=== PATIENT | female | born 1975 | race Caucasian/White ===

== ENCOUNTER 2019-02-10 10:20 | Emergency (ER) | payer MEDICAID, SELFPAY ==
[2019-02-10 10:30] VITALS: BP 120/60; PULSE 92; RESP 16; TEMP 37; O2SAT 100
--- NOTE | 2019-02-10 10:31 | W.ED.GENAD ---
Discharge Plan Disposition Patient Disposition: HOME Condition: Stable Discharge Details Chief Complaint: Orthopedic Clinical Impression: Left knee sprain Primary Care Provider: Daniella Espinoza ED Provider: Abelardo Billings Home Meds and New Rx's Prescriptions: No Action No Known Home Meds RF: 0 Discharge Instructions Instructions: Knee Sprain (ED) Additional Instructions: Follow up with orthopedics especially if pain is not improved in a week you can take 1000mg tylenol and 600mg ibuprofen every 6 hours for pain as needed Referrals: Ignacio Messina MD [ [facility] STAFF PHYSICIAN] - Medical Decision Making 43 yo female comes in with left knee pain. States last night had her animals (goats) and one of the ropes got wrapped around her right leg and she got pulled to the ground, denies head trauma or loc. During the fall she states her left knee twisted and felt a pop. Has medial left knee pain with swelling of the knee. Does have full rom of the knee with intact ditsal sensastion, no redness or warmth. Suspect strain vs sprain, also could be meniscus injury or ligament injury. Will xray to eval for fx xray negative on my read for fx. Given knee brace and crutches to use prn and will have her f/u with orthopedics Differential Diagnosis sprain, strain, contusion, fx Imaging Data Radiologic Study: Attestation: I personally reviewed and interpreted this imaging study as follows: Imaging: X-Ray My impression: no acute findings HPI General Mode of arrival: ambulatory. Date/Time Provider Initiated Documentation: 02/10/19 10:31. Limitations to Documentation: no limitations. Information obtained by: patient. History of Present Illness 43 year old F presents to the emergency department with the chief complaint of left knee pain, described as moderate, Quality is described as aching, and is localized to the left and lower extremity. Patient started experiencing this day(s) (1) and it has been constant. Rest improves symptom(s), Movement worsens symptoms . Patient notes no other symptoms.. Patient did receive the following treatments prior to arrival, none Related Data Home Medications Medication Instructions Recorded Confirmed Unknown [No Known Home Meds] 02/10/19 02/10/19 Allergies Allergy/AdvReac Type Severity Reaction Status Date / Time No Known Allergies Allergy Unverified 02/10/19 10:35 Review of Systems Review of Systems All systems reviewed & are unremarkable except as noted in HPI and below Constitutional Denies chills, Denies fever(s) and Denies weakness Cardiovascular Denies chest pain and Denies dyspnea Respiratory Denies dyspnea Gastrointestinal Denies vomiting Neurologic Denies weakness [facility] Social History Smoking/Tobacco Use Status: Never Alcohol Intake: never Drug use: Never Substance use type: does not use Do you feel safe at home: Yes Do you feel safe in your relationship?: Yes Exam Const General: no acute distress Orientation: alert HENMT Head: normal to inspection Ears: external ears normal General nose exam: external nose normal Mouth: moist mucous membranes Eyes General: appearance normal, both eyes and all related structures Neck Neck: normal visual inspection Resp Effort & Inspection: normal respiratory effort and able to speak in complete sentences Cardio Rate: regular rate Skin General skin exam: no rashes or lesions noted Neuro General: alert and oriented x3 Extrem General: normal capillary refill Psych Mental Status: mental status grossly normal
--- NOTE | 2019-02-10 10:45 | ED.GENADUL_ITS ---
Discharge Plan Disposition Patient Disposition: HOME Condition: Stable Discharge Details Chief Complaint: Orthopedic Clinical Impression: Left knee sprain Primary Care Provider: Daniella Espinoza ED Provider: Abelardo Billings Home Meds and New Rx's Prescriptions: No Action No Known Home Meds RF: 0 Discharge Instructions Instructions: Knee Sprain (ED) Additional Instructions: Follow up with orthopedics especially if pain is not improved in a week you can take 1000mg tylenol and 600mg ibuprofen every 6 hours for pain as needed Referrals: Ignacio Messina MD [ [facility] STAFF PHYSICIAN] - Medical Decision Making 43 yo female comes in with left knee pain. States last night had her animals (goats) and one of the ropes got wrapped around her right leg and she got pulled to the ground, denies head trauma or loc. During the fall she states her left knee twisted and felt a pop. Has medial left knee pain with swelling of the knee. Does have full rom of the knee with intact ditsal sensastion, no redness or warmth. Suspect strain vs sprain, also could be meniscus injury or ligament injury. Will xray to eval for fx xray negative on my read for fx. Given knee brace and crutches to use prn and will have her f/u with orthopedics Differential Diagnosis sprain, strain, contusion, fx Imaging Data Radiologic Study: Attestation: I personally reviewed and interpreted this imaging study as follows: Imaging: X-Ray My impression: no acute findings HPI General Mode of arrival: ambulatory . Date/Time Provider Initiated Documentation: 02/10/19 10:31 . Limitations to Documentation: no limitations . Information obtained by: patient . History of Present Illness 43 year old F presents to the emergency department with the chief complaint of left knee pain, described as moderate, Quality is described as aching, and is localized to the left and lower extremity. Patient started experiencing this day(s) (1) and it has been constant. Rest improves symptom(s), Movement worsens symptoms . Patient notes no other symptoms.. Patient did receive the following treatments prior to arrival, none Related Data Home Medications Medication Instructions Recorded Confirmed Unknown [No Known Home Meds] 02/10/19 02/10/19 Allergies Allergy/AdvReac Type Severity Reaction Status Date / Time No Known Allergies Allergy Unverified 02/10/19 10:35 Review of Systems Review of Systems All systems reviewed & are unremarkable except as noted in HPI and below Constitutional Denies chills, Denies fever(s) and Denies weakness Cardiovascular Denies chest pain and Denies dyspnea Respiratory Denies dyspnea Gastrointestinal Denies vomiting Neurologic Denies weakness [facility] Social History Smoking/Tobacco Use Status: Never Alcohol Intake: never Drug use: Never Substance use type: does not use Do you feel safe at home: Yes Do you feel safe in your relationship?: Yes Exam Const General: no acute distress Orientation: alert HENMT Head: normal to inspection Ears: external ears normal General nose exam: external nose normal Mouth: moist mucous membranes Eyes General: appearance normal, both eyes and all related structures Neck Neck: normal visual inspection Resp Effort & Inspection: normal respiratory effort and able to speak in complete sentences Cardio Rate: regular rate Skin General skin exam: no rashes or lesions noted Neuro General: alert and oriented x3 Extrem General: normal capillary refill Psych Mental Status: mental status grossly normal
--- NOTE | 2019-02-10 11:01 | DI.RAD_ITS ---
SYMPTOM/DIAGNOSIS: PAIN S/P FALL LEFT KNEE: There is no evidence of a fracture or dislocation.
== END 2019-02-10 11:32 | disposition home or self-care (01) ==
LOC: ER 11:18
PROVIDERS: Emergency Provider Emergency Medicine; PCP Naturopath
DX: S83.92XA Sprain of unspecified site of left knee, initial encounter (principal); W01.0XXA Fall on same level from slipping, tripping and stumbling without subsequent striking against object, initial encounter
CPT/HCPCS: 29505; 73562; 99283; 99282; E0114; L1820